=== PATIENT | female | born 1955 | race Hispanic/Latino ===

== ENCOUNTER 2017-12-30 08:18 | Outpatient (CLI) | payer OTHER | END 2017-12-30 08:19 | disposition home or self-care (01) | LOC: BICULT 08:18 | PROVIDERS: ATTEND Internal Medicine | DX: K80.20 Calculus of gallbladder without cholecystitis without obstruction (principal) | CPT/HCPCS: 76700 ==

== ENCOUNTER 2018-03-07 11:25 | Outpatient (CLI) | payer OTHER ==
[2018-03-07 12:58] LABS: #Basophils 0.1 thou/uL (0.0-0.2); #Eosinphils 0.1 thou/uL (0.0-0.7); #Lymphocytes 1.7 thou/uL (1.20-3.40); #Monocytes 0.4 thou/uL (0.11-0.59); #Neutrophils 2.2 thou/uL (1.40-6.50); %Basophils 1.2 % (0.0-1.0); %Eosinophils 2.9 % (0.0-10.0); %Lymphocytes 37.7 % (21.0-51.0); %Monocytes 9.3 % (0.0-10.0); %Neutrophils 48.9 % (42.0-75.0); Hemoglobin 12.4 g/dL (12.0-16.0); Mean Corpuscular HGB CONC 33.9 g/dL (32.0-36.0); Mean Corpuscular Hemoglobin 29.9 pg (27.0-31.0); Mean Corpuscular Volume 88.4 fL (78.0-98.0); Mean Platelet Volume 7.4 fL (7.4-10.4); Platelet Count 230 thou/uL (130-400); RBC Distribution Width 13.6 % (11.5-14.5); Red Blood Cell (RBC) Count 4.15 mill/uL (4.20-5.40); White Blood Cell (WBC) Count 4.6 thou/uL (4.8-10.8)
[2018-03-07 13:26] LABS: ALT (SGPT) 17 U/L (8-55); AST (SGOT) 16 U/L (5-34); Alkaline Phosphatase 50 U/L (40-150); Anion Gap 8 mmol/L (10-20); BUN (Urea Nitrogen) 13 mg/dL (9.8-20.1); Bilirubin, Direct 0.2 mg/dL (0.1-0.3); Bilirubin, Total 0.5 mg/dL (0.2-1.2); Calc. Creatinine Clearance 0 mL/min (70-130); Carbon Dioxide 26 mmol/L (22-29); Chloride 107 mmol/L (98-107); Estimated GFR-MDRD 62; Glucose 90 mg/dL (70-105); Protein, Total 7.2 g/dL (6.0-8.3); Sodium 137 mmol/L (136-145)
--- NOTE | 2018-03-08 07:01 | EKG ---
Test Reason : Blood Pressure : / mmHG Vent. Rate : 076 BPM Atrial Rate : 076 BPM P-R Int : 142 ms QRS Dur : 088 ms QT Int : 386 ms P-R-T Axes : 048 028 -03 degrees QTc Int : 434 ms Normal sinus rhythm Cannot rule out Anterior infarct , age undetermined (Doubtful) poor R wave progression. Abnormal ECG When compared with ECG of 28-MAR-2016 16:43, QT has shortened Confirmed by NGHIA JETER ([id number]) on 03/08/2018 7:01:15 AM Referred By: CHRISTIAN Confirmed By:NGHIA JETER
== END 2018-03-07 11:26 | disposition home or self-care (01) ==
LOC: LABBT 11:25
PROVIDERS: ATTEND Surgery
DX: Z01.818 Encounter for other preprocedural examination (principal); K80.20 Calculus of gallbladder without cholecystitis without obstruction
CPT/HCPCS: 80048; 80076; 85025; 93005; 93010

== ENCOUNTER 2018-03-08 06:44 | Day surgery (SDC) | payer OTHER ==
[2018-03-07 11:41] VITALS: BMI 25.9
[2018-03-08] MEDS ORDERED: Clindamycin/D5W 900 mg/50 ml Premix Bag ONE (08:16)
[2018-03-08] MEDS ORDERED: Bupivacaine/Epinephrine 0.25% 30 ML VIAL ONE (08:20)
[2018-03-08] MEDS ORDERED: Fentanyl 100 MCG/2 ML VIAL ONE ×2 (08:23→09:40)
[2018-03-08] MEDS ORDERED: Ketamine 50 MG/ML VIAL ONE (08:23)
[2018-03-08] MEDS ORDERED: SUGAMMADEX SODIUM 200 MG/2 ML VIAL ONE (09:08)
[2018-03-08] MEDS ORDERED: SUGAMMADEX SODIUM 500 MG/5 ML VIAL ONE (09:09)
[2018-03-08] MEDS ORDERED: Promethazine HCl 25 MG/ML VIAL ONE (09:23)
[2018-03-08] MEDS ORDERED: diphenhydrAMINE 50 MG/ML VIAL ONE (09:40)
[2018-03-08] MEDS ORDERED: Lidocaine 1% PF 5 ML VIAL ONE (15:01)
[2018-03-08] MEDS ORDERED: PROPOFOL 200 MG/20 ML VIAL ONE (15:01)
[2018-03-08] MEDS ORDERED: Ondansetron HCl/PF 4 MG/2 ML Vial ONE (15:01)
--- NOTE | 2018-03-08 20:40 | OP ---
DATE OF SERVICE: 03/08/2018 PREOPERATIVE DIAGNOSIS: Symptomatic gallstones. POSTOPERATIVE DIAGNOSIS: Symptomatic gallstones. PROCEDURE: Laparoscopic cholecystectomy. SURGEON: Dr. Velásquez. ANESTHESIA: General. ESTIMATED BLOOD LOSS: Minimal. COMPLICATIONS: None. SPECIMEN: Gallbladder. FINDINGS: Chronic cholecystitis. PROCEDURE IN DETAIL: The patient was taken to the Operating Room and laid supine on the Operating Nette m table. After general anesthetic was obtained, the abdomen was prepped and draped in a sterile fashi on. A curved incision was made below the umbilicus. Cautery was used to dissect down to the umbilical fascia. Umbilical fascia was incised and held up using a [place]. The abdominal cavity was entered us ing a Daniela clamp. Holding stitch of Vicryl was placed on each side of the fascia. Breen trocar was placed. High-flow pneumoperitoneum was obtained. An upper midline 5-mm port and two right upper quadr ant 5-mm ports were placed under direct camera visualization. The gallbladder was retracted from the gallbladder fossa. The peritoneum of the gallbladder was opened anteriorly and posteriorly. The criti bakari view triangle was seen showing only the cystic duct and cystic artery branching from medial to la teral. There were no other branching structures. Two clips were placed proximally on the cystic duct and one laterally. It was cut using laparoscopic scissors. The cystic artery was taken in the same wa y. Electrocautery was then used to dissect the gallbladder out of the gallbladder fossa. The gallblad amy was placed in an Endo catch bag and brought out through the Breen. There was no bleeding or bile in the liver bed. The cystic duct stump and cystic artery stump were intact without evidence of extr avasation or bleeding. All port sites were infiltrated using local anesthesia. All ports were removed under camera visualization. Pneumoperitoneum was let down. The Vicryl was used to close the fascial defect below the umbilicus. All incisions were irrigated and closed using 4-0 Monocryl and DermaBond. The patient was en route to Recovery in stable condition. All instrument counts, needle counts and l ap counts were correct.
== END 2018-03-08 11:50 | disposition home or self-care (01) ==
LOC: SDC 06:44
PROVIDERS: ATTEND Surgery
PROC: 0FT44ZZ Resection of Gallbladder, Percutaneous Endoscopic Approach (ICD-10-PCS; principal; 2018-03-08)
DX: K80.10 Calculus of gallbladder with chronic cholecystitis without obstruction (principal); Z88.0 Allergy status to penicillin; Z88.2 Allergy status to sulfonamides
CPT/HCPCS: 88304; J0131; J1200; J2001; J2405; J2550; J2704; J3010; J3490

== ENCOUNTER 2018-07-21 13:17 | Outpatient (CLI) | payer OTHER | END 2018-07-21 13:18 | disposition home or self-care (01) | LOC: BICMAMMO 13:17 | PROVIDERS: ATTEND Obstetrics & Gynecology | DX: Z12.31 Encounter for screening mammogram for malignant neoplasm of breast (principal) | CPT/HCPCS: 77063; 77067 ==

== ENCOUNTER 2019-04-12 17:19 | Outpatient (CLI) | payer OTHER ==
--- NOTE | 2019-04-12 17:35 | RAD ---
EXAM: Chest 2 views: HISTORY: Fever for 3 days and cough COMPARISON: None. FINDINGS: There is a normal-sized cardiomediastinal silhouette. There is no evidence of consolidation, mass, or pleural effusion. The bones are unremarkable. IMPRESSION: No evidence of acute cardiopulmonary disease
== END 2019-04-12 17:20 | disposition home or self-care (01) ==
LOC: SCSRAD 17:19
PROVIDERS: ATTEND Internal Medicine
DX: R50.9 Fever, unspecified (principal)
CPT/HCPCS: 71046

== ENCOUNTER 2019-05-24 15:43 | Outpatient (CLI) | payer OTHER ==
--- NOTE | 2019-05-24 16:38 | RAD ---
Exam:AP upright weightbearing view of the left and right knee, lateral view the left knee, lateral vi ew the right HISTORY: Right fracture. Multiple sites. COMPARISON: None FINDINGS: Joint spaces are preserved. No fractures or malalignment. No joint effusion. IMPRESSION: Unremarkable radiographs.
--- NOTE | 2019-05-24 16:41 | RAD ---
Exam:3 views right hand HISTORY: Rheumatoid factor. COMPARISON: None FINDINGS: No erosive or destructive changes of the radial styloid or ulnar styloid Joint spaces are preserved. No destructive changes or erosive changes. No fracture or malalignment IMPRESSION: Unremarkable 3 views right
--- NOTE | 2019-05-24 16:41 | RAD ---
RIGHT FOOT THREE VIEWS: HISTORY: Foot pain. Rheumatoid factor. FINDINGS: The tarsals are unremarkable. The metatarsals and phalanges are unremarkable. MTP and IP joints are u nremarkable. No evidence of arthropathy. IMPRESSION: Unremarkable right foot. POS: OFF
--- NOTE | 2019-05-24 16:42 | RAD ---
LEFT FOOT: 05/24/19 Three views. HISTORY: Foot pain. Rheumatoid factor. Tarsals appear unremarkable. The metatarsals and phalanges unremarkable. MTP and IP joints unremarkab le. IMPRESSION: Unremarkable left foot. No evidence of arthropathy. POS: OFF
--- NOTE | 2019-05-24 16:43 | RAD ---
LEFT HAND: 05/24/19 Three views. HISTORY: Hand pain. Rheumatoid factor. Mild DJD at the first carpometacarpal. MCP joints are unremarkable. Mild DJD at the IP joints with mild spurring from the PIP and DIP joints. IMPRESSION: There are mild degenerative changes as described. POS: OFF
== END 2019-05-24 15:44 | disposition home or self-care (01) ==
LOC: BICRAD 15:43
PROVIDERS: ATTEND Internal Medicine Rheumatology
DX: M05.89 Other rheumatoid arthritis with rheumatoid factor of multiple sites (principal); M35.00 Sjogren syndrome, unspecified; M19.042 Primary osteoarthritis, left hand
CPT/HCPCS: 73565

== ENCOUNTER 2019-07-27 10:45 | Outpatient (CLI) | payer OTHER ==
--- NOTE | 2019-07-27 13:31 | MMO ---
Bilateral MAMMO Bilat Screen [facility]. CLINICAL HISTORY: Patient is 64 years old and is seen for screening. The patient has no family history of breast cancer. The patient has no personal history of cancer. VIEWS: The views performed were: bilateral craniocaudal with tomosynthesis and bilateral mediolateral oblique with tomosynthesis. FILMS COMPARED: The present examination has been compared to prior imaging studies performed at [facility] on 10/04/2013, 02/19/2015, 08/12/2016 and 07/21/2018. This study has been interpreted with the assistance of computer-aided detection. MAMMOGRAM FINDINGS: The breasts are heterogeneously dense, which could obscure a lesion on mammography. There are stable benign appearing calcifications seen in both breasts. There are no suspicious masses, suspicious calcifications, or new areas of architectural distortion. IMPRESSION: THERE IS NO MAMMOGRAPHIC EVIDENCE OF MALIGNANCY. A ROUTINE FOLLOW-UP MAMMOGRAM IN 1 YEAR IS RECOMMENDED. THE RESULTS OF THIS EXAM WERE SENT TO THE PATIENT. ACR BI-RADS Category 2 - Benign finding MAMMOGRAPHY NOTE: 1. A negative mammogram report should not delay a biopsy if a dominant of clinically suspicious mass is present. 2. Approximately 10% to 15% of breast cancers are not detected by mammography. 3. Adenosis and dense breasts may obscure an underlying neoplasm. Reported by: JONI KOO MD Electonically Signed: [id number]
== END 2019-07-27 10:46 | disposition home or self-care (01) ==
LOC: BICMAMMO 10:45
PROVIDERS: ATTEND Obstetrics & Gynecology
DX: Z12.31 Encounter for screening mammogram for malignant neoplasm of breast (principal)
CPT/HCPCS: 77063; 77067

== ENCOUNTER 2020-02-13 12:03 | Outpatient (CLI) | payer OTHER ==
--- NOTE | 2020-02-13 12:29 | RAD ---
EXAM: 3 views of the right wrist HISTORY: Chronic wrist pain COMPARISON: None FINDINGS: 3 views of the right wrist shows no evidence of acute fracture or dislocation. A small cyst is seen in the lunate. No soft tissue swelling is seen. No degenerative changes are present. IMPRESSION: No evidence of acute osseous abnormality.
--- NOTE | 2020-02-13 12:30 | RAD ---
EXAM: 3 views of the left wrist HISTORY: Wrist pain COMPARISON: None FINDINGS: 3 views of the left wrist shows no evidence of acute fracture or dislocation. No soft tissu e swelling is seen. No degenerative changes are present. IMPRESSION: No evidence of acute osseous abnormality.
--- NOTE | 2020-02-13 12:56 | RAD ---
LEFT ANKLE 3 VIEWS: Date: 02/13/2020 HISTORY: Left ankle pain. FINDINGS/IMPRESSION: No fracture, dislocation, or bony destruction is seen. The ankle mortise is maintained. A tiny ehs engineer ior calcaneal spur is present. POS: [place]
--- NOTE | 2020-02-13 12:56 | RAD ---
RIGHT ANKLE 3 VIEWS: Date: 02/13/2020 HISTORY: Right ankle pain. FINDINGS/IMPRESSION: The ankle mortise is maintained. No fracture, dislocation, or bony destruction is seen. A small poste rior calcaneal spur is present. POS: [place]
== END 2020-02-13 12:04 | disposition home or self-care (01) ==
LOC: BICRAD 12:03
PROVIDERS: ATTEND Internal Medicine Rheumatology
DX: M25.571 Pain in right ankle and joints of right foot (principal); M25.572 Pain in left ankle and joints of left foot; G89.29 Other chronic pain; M05.89 Other rheumatoid arthritis with rheumatoid factor of multiple sites; M77.32 Calcaneal spur, left foot; M77.31 Calcaneal spur, right foot

== ENCOUNTER 2021-06-16 11:33 | Outpatient (CLI) | payer BC | END 2021-06-16 11:34 | disposition home or self-care (01) | LOC: BICMAMMO 11:33 | PROVIDERS: ATTEND Student in an Organized Health Care Education/Training Program | DX: Z12.31 Encounter for screening mammogram for malignant neoplasm of breast (principal) | CPT/HCPCS: 77063; 77067 ==

== ENCOUNTER 2024-01-20 13:25 | Outpatient (CLI) | payer MEDICARE | END 2024-01-20 13:26 | disposition home or self-care (01) | LOC: BICMAMMO 13:25 | PROVIDERS: ATTEND Internal Medicine | DX: Z13.820 Encounter for screening for osteoporosis (principal); M85.88 Other specified disorders of bone density and structure, other site; Z78.0 Asymptomatic menopausal state | CPT/HCPCS: 77080 ==

== ENCOUNTER 2025-04-26 11:53 | Outpatient (CLI) | payer MEDICARE | END 2025-04-26 11:54 | disposition home or self-care (01) | LOC: BICRAD 11:53 | PROVIDERS: ATTEND Internal Medicine | DX: M54.2 Cervicalgia (principal); M47.812 Spondylosis without myelopathy or radiculopathy, cervical region | CPT/HCPCS: 72040 ==